=== PATIENT | female | born 1950 | race Caucasian/White ===

== ENCOUNTER 2020-01-25 07:16 | Emergency (ER) | payer MEDICARE ==
[~2020-01-25] VITALS: Ht 172.7 cm; Wt 113.4 kg
[2020-01-25] MEDS ORDERED: INHALED STEROID (07:21)
[2020-01-25] MEDS ORDERED: SYNTHROID100 MC1 PO (07:21)
[2020-01-25 08:02] LABS: ABSOLUTE BASOPHILS 0.1 thou/uL (0.0-0.2); ABSOLUTE EOSINOPHILS 0.3 thou/uL (0.0-0.7); ABSOLUTE LYMPHOCYTES 2.2 thou/uL (0.8-5.3); ABSOLUTE MONOCYTES 1.1 thou/uL (0.0-1.2); ABSOLUTE NEUTROPHILS 8.5 thou/uL (1.6-8.1); BASOPHILS 0.9 %; EOSINOPHILS 2.1 %; HEMATOCRIT 46.5 % (37.0-47.0); HEMOGLOBIN 15.7 gm/dL (12.0-15.0); LYMPHOCYTES 18.3 %; MCH 29.8 pg (26.0-34.0); MCHC 33.8 g/dL (28.0-37.0); MCV 88.2 fL (80.0-100.0); MONOCYTES 9.2 %; MPV 7.8 fl. (7.2-11.1); NUCLEATED RBCS 0 /100WBC; PLATELET COUNT* 265 thou/uL (150-400); POLYS 69.5 %; RBC 5.27 mil/uL (4.20-5.00); RDW-CV 13.9 % (10.5-14.5); WBC 12.3 thou/uL (4.0-11.0)
[2020-01-25 08:14] LABS: CALCIUM 8.3 mg/dL (8.5-10.1); CREATININE 1.1 mg/dL (0.6-1.3); POTASSIUM 4.2 mmol/L (3.5-5.1)
[2020-01-25 08:22] LABS: APTT 24.3 Seconds (25.0-31.3); PROTIME 10.3 Seconds (9.20-11.50)
[2020-01-25 08:27] LABS: ALBUMIN 3.5 g/dL (3.4-5.0); MAGNESIUM 1.9 mg/dL (1.8-2.4); TOTAL BILIRUBIN 0.5 mg/dL (<0.1-1.0); TOTAL PROTEIN 7.5 g/dL (6.4-8.2)
[2020-01-25] MEDS ORDERED: LEVOTHYROXINE112 MCG PO (09:36)
[2020-01-25 09:39] VITALS: BP 196/89
--- NOTE | 2020-01-25 16:13 | EKG ---
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[facility] : 1950 Requested By: William Galvan Order Number: [id number] MD: Benji Osorio Measurements Intervals [place] Rate: 90 P: 47 [place]: 184 QRS: 44 QRSD: 92 T: 57 QT: 383 QTc: 469 Interpretive Statements Sinus rhythm Probable left atrial enlargement Low voltage, precordial leads Baseline wander in lead(s) V4,V6 No previous ECG available for comparison Electronically Signed On 01-25-2020 16:12:55 ALARM SECURITY OR SURVEILLANCE MONITOR by Benji Osorio [email or web address] <ELECTRONICALLY SIGNED> By: Benji Osorio MD, [facility] 01/25/20 1612 0722 Benji Osorio MD, [facility] /EPI
== END 2020-01-25 09:40 | disposition home or self-care (01) ==
LOC: M.ERS 07:16
PROVIDERS: Family Medicine
DX: R07.89 Other chest pain (principal); Z85.3 Personal history of malignant neoplasm of breast; E03.9 Hypothyroidism, unspecified; Z90.12 Acquired absence of left breast and nipple